=== PATIENT | female | born 1950 | race Caucasian/White ===

== ENCOUNTER 2020-03-05 05:07 | Inpatient (IN) ==
--- NOTE | 2020-02-27 13:17 | PAT Medication Instructions ---
Medication Instructions Date of Service February 27, 2020 Home Medications Lactobacillus acidophilus [Probiotic] 1 cell PO DAILY aspirin 81 mg PO QAM cetirizine [Zyrtec] 10 mg PO DAILY PRN cholecalciferol (vitamin D3) [Vitamin D3] 25 mcg PO QAM cranberry 500 mg PO QAM magnesium oxide 400 mg PO BID vitamin B complex 1 tab PO QAM STOP taking 2 weeks before surgery cranberry 500 mg PO QAM DO NOT take the morning of surgery magnesium oxide 400 mg PO BID vitamin B complex 1 tab PO QAM cetirizine [Zyrtec] 10 mg PO DAILY PRN cholecalciferol (vitamin D3) [Vitamin D3] 25 mcg PO QAM Lactobacillus acidophilus [Probiotic] 1 cell PO DAILY Take morning of surgery With a small sip of water, OTHERWISE NOTHING TO EAT OR DRINK AFTER MIDNIGHT: aspirin 81 mg PO QAM Take evening before surgery magnesium oxide 400 mg PO BID Other Notes If you have any questions please call us at [phone] or [phone] or [phone] or [phone]
--- NOTE | 2020-02-28 13:11 | Anesthesiology Consultation ---
Date of Service February 28, 2020 Assessment & Plan (1) Encounter for pre-operative examination: COVID Status: As of 02/27 PAT assessment, patient denies travel to endemic area, known exposure/sick contacts, symptoms, or testing for coronavirus. Chart Review Chart Review: Acceptable Risk for Surgery and Patient seen in Pre Admission Testing Teaching & Discussion Instructed NPO after midnight before surgery, except medications with 15 cc of water. Medication instructions provided according to the PAT guidelines. History Surgery Operation Date: 03/05/20 10:25 Proposed Procedures p Left Anterior Total Hip Arthroplasty - Oscra Orlando DO Height/Weight Height: 5 ft 6 in Weight: 95.254 kg Allergies Allergy/AdvReac Type Severity Reaction Status Date / Time Penicillins Allergy Unknown UNKNOWN Verified 02/09/20 08:56 REACTION Medications Home Medications Medication Instructions Recorded Confirmed Last Taken Lactobacillus acidophilus 1 cell PO DAILY 02/09/20 02/09/20 Unknown [Probiotic] aspirin 81 mg PO QAM 02/09/20 02/09/20 Unknown cetirizine [Zyrtec] 10 mg PO DAILY PRN 02/09/20 02/09/20 Unknown cholecalciferol (vitamin D3) 25 mcg PO QAM 02/09/20 02/09/20 Unknown [Vitamin D3] cranberry 500 mg PO QAM 02/09/20 02/09/20 Unknown magnesium oxide 400 mg PO BID 02/09/20 02/09/20 Unknown vitamin B complex 1 tab PO QAM 02/09/20 02/09/20 Unknown Past Medical History Medical History (Updated 02/28/20 @ 16:48 by Erick Pineda) Hypoglycemia Pt reports symptomatic hypoglycemia if she does not eat every few hours. Advised if symptoms AM DOS may drink up to 4oz of apple juice. Obesity Osteoarthritis Exercise / Class Metabolic Activity III < 4 Walking/Shop/Light housework Very debilitated by hip pain currently, using wheelchair. But prior to severe hip pain had no SOB or CP with 1 FOS/ambulation. Past Family History Family History Mother Family hx of colon cancer Sister Family hx of colon cancer Past Surgical History Surgical History History of tonsillectomy History of tooth extraction Past Anesthesia History No Hx of Anesthesia Complications and No Family Hx of Anesthesia Complications History of PONV No Hx of PONV and No Hx of Motion Sickness Social History Smoking Status: Never smoker Do You Dip or Chew Tobacco: No Hx Alcohol Use: No Hx Substance Use: No substance use type: does not use Review of Systems Pt denies any recent chest pain, shortness of breath, palpitations, cough, fever or URI. Physical Exam Vital Signs BP: 176/113 (pt reports significant white coat HTN) rpt manual 160/98 P: 89bpm SPO2: 98% RA T: 98.4 F R: 14 Constitutional + obese ENMT Mouth: + chipped teeth (one rear molar) and + small oral opening; no dental restorations and no loose teeth Thyromental Distance: < 3.5 Finger Breadths (3) Mallampati Class: III Neck normal visual inspection; neck extension not limited Respiratory normal respiratory effort Auscultation: lungs clear to auscultation bilaterally Cardiovascular Rate/Rhythm: regular rate and regular rhythm Heart Sounds: no murmur Extremities: no edema Testing Laboratory Results 02/28/20 12:52 02/28/20 12:52 PT 10.9 Seconds (9.0-12.0) 02/28/20 12:52 INR 1.0 (0.9-1.1) 02/28/20 12:52 APTT 31.6 Seconds (21.0-31.0) H 02/28/20 12:52 Hemoglobin A1c 5.7 % (4.5-5.6) H 02/28/20 12:52 Urine Color Yellow 02/28/20 Unknown Urine Appearance Clear (Clear) 02/28/20 Unknown Urine pH 6.5 (4.5-7.5) 02/28/20 Unknown Ur Specific Mchenry 1.012 (1.000-1.030) 02/28/20 Unknown Urine Protein Negative (Negative) 02/28/20 Unknown Urine Glucose (UA) Negative (Negative) 02/28/20 Unknown Urine Ketones Negative (Negative) 02/28/20 Unknown Urine Nitrite Negative (Negative) 02/28/20 Unknown Ur Leukocyte Esterase Negative (Negative) 02/28/20 Unknown Blood Type A Negative 02/28/20 12:52 Antibody Screen NEGATIVE 02/28/20 12:52 Electrocardiogram Date: 02/28/20 Findings: + NSR @ (77bpm) Chest X-Ray Date: 02/28/20 Findings: + NAD
--- NOTE | 2020-02-28 13:37 | XRay Report ---
XR chest Pre-admission PA/Lat CLINICAL HISTORY: PAT preoperative evaluation COMPARISON STUDY: No previous studies for comparison. FINDINGS: The bones soft tissues and hemidiaphragms are normal. The cardiomediastinal silhouette is n ormal. The lungs are clear. The pulmonary vasculature is normal. IMPRESSION: Negative chest. ACT 112: Negative or not required by law. The above report was generated using voice recognition software. It may contain grammatical, syntax or spelling errors. Electronically signed by: Rudi Botello M.D. 02/28/2020 1:36 PM
[2020-02-28 14:09] LABS: Basophils # (auto) 0.01 K/uL (0-0.2); Basophils % (auto) 0.2 %; Eosinophils # (auto) 0.06 K/uL (0-0.5); Eosinophils % (auto) 1.1 %; Estimated Average Glucose 117 mg/dl; Hematocrit (blood only) 45.1 % (37-47); Hemoglobin 14.6 g/dL (12.0-16.0); Hemoglobin A1C 5.7 % (4.5-5.6); Immature Granulocytes # (auto) 0.01 K/uL (0.00-0.02); Immature Granulocytes % (auto) 0.2 %; Lymphocytes # (auto) 1.91 K/uL (1.2-3.4); Lymphocytes % (auto) 33.6 %; Mean Corpuscular Hemoglobin 29.6 pg (25-34); Mean Corpuscular Hgb Conc 32.4 g/dL (32-36); Mean Corpuscular Volume 91.3 fL (80-100); Mean Platelet Volume 9.3 fL (7.4-10.4); Monocytes # (auto) 0.43 K/uL (0.11-0.59); Monocytes % (auto) 7.6 %; Neutrophils # (auto) 3.26 K/uL (1.4-6.5); Neutrophils % (auto) 57.3 %; Platelet Count 267 K/uL (130-400); RDW Standard Deviation 43.6 fL (36.4-46.3); Red Blood Count 4.94 M/uL (4.2-5.4); White Blood Count 5.68 K/uL (4.8-10.8)
[2020-02-28 14:10] LABS: Partial Thromboplastin Ratio 1.1; Partial Thromboplastin Time 31.6 Seconds (21.0-31.0); Prothrombin Time 10.9 Seconds (9.0-12.0)
[2020-02-28 14:18] LABS: Albumin Level 3.9 gm/dl (3.4-5.0); BUN Creatinine Ratio 19.1 (10-20); Calcium 9.3 mg/dl (8.5-10.1); Creatinine Clr Calc Pharmacy 88.2 ml/min; Est GFR (African American) 101.4; Est GFR (Non-African American) 87.5; Potassium 3.8 mmol/L (3.5-5.1)
--- NOTE | 2020-02-28 14:40 | Electrocardiogram Report ---
Test Reason : Blood Pressure : / mmHG Vent. Rate : 077 BPM Atrial Rate : 077 BPM P-R Int : 150 ms QRS Dur : 084 ms QT Int : 372 ms P-R-T Axes : 070 019 061 degrees QTc Int : 420 ms Normal sinus rhythm Normal ECG No previous ECGs available Confirmed by Lawrence Reed ([id number]) on 02/28/2020 2:40:07 PM Referred By: Oscar Orlando Confirmed By:Lawrence Reed
[2020-02-28 14:46] LABS: Appearance Urine Clear (Clear); Bilirubin Urine Negative (Negative); Blood Urine Negative (Negative); Color Urine Yellow; Glucose Urine UA Negative (Negative); Ketones Urine Negative (Negative); Leukocyte Esterase Urine Negative (Negative); Nitrite Urine Negative (Negative); Protein Urine Negative (Negative); Specific Gravity Urine 1.012 (1.000-1.030); Urobilinogen Urine Negative (Negative); pH Urine 6.5 (4.5-7.5)
--- NOTE | 2020-03-04 19:59 | History & Physical Report ---
Date of Service March 05, 2020 Assessment & Plan (1) Degenerative joint disease of left hip: I have indicated the patient for left total hip replacement. The risks, benefits and complications of surgery were explained to the patient which include but not limited to infection, acute blood loss, DVT/PE, injury to nerves, vessels, bone, soft tissue, arthrofibrosis, chronic pain, failure of the prosthesis, hip dislocation, leg length discrepancy, need for additional surgery, cardiac and pulmonary events and . The patient wished to proceed with surgery and informed consent was obtained at this time. We will plan for ASA BID post-operatively for DVT prophylaxis. Upon discharge the patient will be discharged home with home health services. Appropriate clearances by PCP were obtained. History of Present Illness Chief Complaint: Left hip pain/DJD Primary Care Provider: Richa Boyd The patient is a 69 year old female who presents with complaints of severe left hip pain and AVN/DJD. The patient has failed outpatient conservative treatments to this point which included NSAIDS, home exercise, walking program. The patient's pain and limited function have progressed to the point where they severely hinder their activities of daily living and they no longer tolerate exercise programs. They are requesting to proceed with total hip replacement surgery. Allergies Allergy/AdvReac Type Severity Reaction Status Date / Time Penicillins Allergy Unknown UNKNOWN Verified 03/05/20 05:37 REACTION Home Medications Home Medications Medication Instructions Recorded Confirmed Type Lactobacillus acidophilus 1 cell PO DAILY 02/09/20 03/05/20 History [Probiotic] aspirin 81 mg PO QAM 02/09/20 03/05/20 History cetirizine [Zyrtec] 10 mg PO DAILY PRN 02/09/20 03/05/20 History cholecalciferol (vitamin D3) 25 mcg PO QAM 02/09/20 03/05/20 History [Vitamin D3] cranberry 500 mg PO QAM 02/09/20 03/05/20 History magnesium oxide 400 mg PO BID 02/09/20 03/05/20 History vitamin B complex 1 tab PO QAM 02/09/20 03/05/20 History Past Med/Surg History Medical History Hypoglycemia Pt reports symptomatic hypoglycemia if she does not eat every few hours. Advised if symptoms AM DOS may drink up to 4oz of apple juice. Obesity Osteoarthritis Surgical History History of tonsillectomy History of tooth extraction Family History Mother Family hx of colon cancer Sister Family hx of colon cancer Social History Preferred Language: Irish Communication Ability: Effective Railroad Carman Required: No Beliefs That Will Affect Care: None Current Living Situation: Spouse Feels Safe at Home: Yes Safety Concerns: Feels Safe At This Time Smoking Status: Never smoker Do You Dip or Chew Tobacco: No ; Second Hand Exposure: Yes ( A CHILD) ; Tobacco Cessation Education Requested by Patient: No Hx Alcohol Use: No Hx Substance Use: No Review of Systems Review of Systems: All systems reviewed & are unremarkable except as noted in HPI & below Constitutional: as per Subjective / HPI Physical Exam Physical Exam: LLE NVSI +EHL/FHL/TA/GS SILT grossly, +2 DP pulse, compartments soft NT, limited painful ROM of the hip, antalgic gait. Constitutional: WD/WN, vitals as above Eyes: PERRL, conjunctivae normal, anicteric sclerae ENMT: external ear and nose normal, oropharynx normal Neck: trachea midline, no thyromegaly Respiratory: normal respiratory effort, lungs clear to auscultation Cardiovascular: RRR, no murmur, no edema Gastrointestinal (Abdomen): normal bowel sounds, soft, nontender, no hepatosplenomegaly Musculoskeletal: no cyanosis or clubbing, extremities motor strength 5/5 Skin: no rashes, warm and dry Neurologic: patellar DTR's 2+ bilat, sensation intact Psychiatric: A+Ox3, euthymic affect Lymphatic: no cervical or axillary lymphadenopathy Results & Data Results & Data ([facility]) Diagnostic Findings Multiple views of the hip demonstrates severe DJD, AVN involving the femoral head, cortical irregularity with complete loss of the joint space. +osteophytes, +sclerosis, +subchondral cysts.
[2020-03-05] MEDS ORDERED: CLINDAMYCIN 600 MG/54 ML BAG IV SCH (06:00)
[2020-03-05] MEDS ORDERED: TRANEXAMIC ACID 1,000 MG **IV Pre-op IV SCH (06:00)
[2020-03-05] MEDS ORDERED: LR 500ML BOLUS, THEN 15ML/HR IV SCH (06:00)
[2020-03-05] MEDS ORDERED: CeleBREX 200 MG CAP PO SCH (06:00)
[2020-03-05] MEDS ORDERED: FAMOTIDINE 20 MG TAB PO SCH (06:00)
[2020-03-05] MEDS ORDERED: BUPIVACAINE LIPOSOME/PF 266 MG, BUPIVACAINE/EPINEPHRINE 50 ML, SODIUM CHLORIDE 0.9% 30 ... INFIL SCH (06:00)
[2020-03-05] MEDS ORDERED: dexAMETHasone 4 MG TAB PO SCH (06:00)
[2020-03-05] MEDS ORDERED: ROPIVACAINE 0.5% HCL/PF 150 MG, BUPIVACAINE 0.5% MPF 30 ML, EPINEPHrine 30MG/30ML (OR U... INSTIL SCH (06:00)
[2020-03-05] MEDS ORDERED: TRANEXAMIC ACID 1,000 MG **IV Intra-op IV SCH (06:00)
[2020-03-05] MEDS ORDERED: ACETAMINOPHEN 500 MG TAB PO SCH (06:00)
[2020-03-05] MEDS ORDERED: GABAPENTIN 300 MG CAP PO SCH (06:00)
[2020-03-05] MEDS ORDERED: METOCLOPRAMIDE HCL 10 MG TABLET PO SCH (06:00)
[2020-03-05] MEDS ORDERED: BUPIVACAINE 0.5 % 5 MG/1 ML PF 10ML VIAL ONE (06:29)
[2020-03-05] MEDS ORDERED: MIDAZOLAM HCL 1 MG/ML 2ML VIAL ONE (06:41)
[2020-03-05] MEDS ORDERED: fentaNYL citrate 100 MCG/2 ML VIAL ONE (06:41)
[2020-03-05] MEDS ORDERED: BACITRACIN INJ 50,000 UNIT VIAL ONE (06:58)
[2020-03-05] MEDS ORDERED: ORTHO JOINT ANESTHETIC ONE (06:58)
--- NOTE | 2020-03-05 07:03 | History & Physical Bridge Note ---
Date of Service March 05, 2020 History & Physical Bridge Note I have examined the patient, reviewed the History & Physical and in the interval since the performance of the History & Physical I have noted the following changes of clinical significance: no changes noted
[2020-03-05] MEDS ORDERED: PROPOFOL IV EMULSION 10 MG/ML 20 ML VIAL IV ONE (08:05)
[2020-03-05] MEDS ORDERED: ePHEDrine sulfate 50 MG/ML AMP IV PRN (08:16)
[2020-03-05] MEDS ORDERED: ATROPINE SULFATE 0.1 MG/ML 10ML SYR IV PRN (08:16)
[2020-03-05] MEDS ORDERED: ONDANSETRON INJ 2 MG/ML 2 ML VIAL IV PRN ×2 (08:16→10:31)
[2020-03-05] MEDS ORDERED: fentaNYL citrate 100 MCG/2 ML VIAL IV PRN (08:16)
[2020-03-05] MEDS ORDERED: ePHEDrine sulfate 50 MG/ML SYR ONE (08:25)
--- NOTE | 2020-03-05 09:31 | Post Operative Brief Note ---
Immediate Post Op Note v1 Date of Surgery March 05, 2020 Pre & Post Diagnosis Operation Date: 03/05/20 07:15 Pre-Op Diagnosis: Left Hip Osteoarthritis Post-Op Diagnosis: Left Hip Osteoarthritis I identified the patient and participated in the time-out.: Yes Procedure Operation Date: 03/05/20 07:15 Actual Procedures p Left Anterior Total Hip Arthroplasty(Left) - Oscar Orlando DO Surgeon Oscar Orlando DO Curriculum Designer Biju Shrestha Estimated Blood Loss 170 Findings Consistent with Post-Op Diagnosis Fluids 1100 cc LR Specimens femoral head Anesthesia Type Spinal MAC Complications none Disposition Disposition: Recovery Room Overlapping Procedure I was present for: the critical portions of procedure. I was immediately available: during the entire case. Back up surgeon: was not required during procedure.
--- NOTE | 2020-03-05 09:53 | Fluoroscopy Report ---
FL hip LT 1V CLINICAL HISTORY: LEFT ANTERIOR HIP COMPARISON STUDY: None FLUOROSCOPY TIME: 1 minute NUMBER OF FLUOROSCOPIC IMAGES: 2 FINDINGS: Image intensifier support for a left hip total arthroplasty IMPRESSION: Image intensifier support for a total left hip arthroplasty. ACT 112: Negative or not required by law. The above report was generated using voice recognition software. It may contain grammatical, syntax or spelling errors. Electronically signed by: Rudi Botello M.D. 03/05/2020 9:52 AM
--- NOTE | 2020-03-05 09:57 | Operative Report ---
Post Operative Report Pre & Post Diagnosis Operation Date: 03/05/20 07:15 Pre-Op Diagnosis: Left Hip Osteoarthritis Post-Op Diagnosis: Left Hip Osteoarthritis I identified the patient and participated in the time-out.: Yes Procedure Operation Date: 03/05/20 07:15 Actual Procedures p Left Anterior Total Hip Arthroplasty(Left) - Oscar Orlando DO Surgeon Oscar Orlando DO Rivet Machine Operator Biju Shrestha Estimated Blood Loss 170 Findings Consistent with Post-Op Diagnosis Fluids 1100 cc LR Specimens Femoral head Anesthesia Type Spinal MAC Complications none Disposition Disposition: Recovery Room Indications The patient is a 69-year-old female who presents with severe progressive left hip DJD who has failed outpatient conservative treatments. I indicated the patient for a total hip replacement and the risks and benefits were explained in detail which included but not limited to infection, bleeding, blood clot, damage to surrounding bone, nerves, vessels, soft tissue, hip dislocation, failure of the prosthesis, leg length discrepancy, need for additional surgery and . The patient agreed to proceed with replacement of the hip and informed consent was obtained. Appropriate clearances were obtained. Description of Procedure COMPONENTS USED: [employer] hip system: Acetabulum size 52, femur size 7 high offset, femoral head 36+4, liner 5236, acetabular screw 25 mm x 1. DESCRIPTION OF PROCEDURE: Following satisfactory spinal anesthesia, the patient was placed supine on the OR table. The right leg was placed in the well leg morataya and the left leg in the traction device. The left leg was prepared with ChloraPrep and draped sterilely. A surgical timeout was performed, patient identified and site monalisa verified. Appropriate antibiotics were given. A standard anterior approach in the interval between the sartorius and tensor muscles was performed. Dissection was carried down through subcutaneous tissues. Electrocautery was utilized for hemostasis. Circumflex femoral vessels were identified, tied and ligated. The anterior capsular fat pad was removed and the capsulotomy was performed revealing the arthritic femoral neck and head. A femoral neck cut was made with reciprocating saw and the bone fragments removed. The acetabular self-retraining retractor was placed. Acetab ular reaming was completed under fluoroscopic guidance, a 52 shell was impacted into an anatomic position and secured with a dome screw. Local anesthetic was placed and following irrigation, the polyethylene liner was placed. The femur was placed into position of external rotation, extension and adduction. Femoral canal was prepared up to the size high offset. Trial reduction with a +4 neck length head showed good soft tissue tension, leg lengths restored, and good fit and fill of the proximal canal using fluoroscopic landmarks. The hip was dislocated. The trial component was removed. The final implant was placed. The hip was irrigated with sterile saline solution and reduced. A Betadine soak was performed. After 3 minutes, the hip was once more irrigated with copious sterile saline solution with bacitracin. Tram-incisional soft tissue was injected utilizing [place] [employer] which includes a combination of Ropivicaine 0.5% 150mg, Bupivicaine 0.5%/Epinephrine 1:200,000 30ml, Toradol 30mg, Dexamethasone 4mg, Ketamine 10mg, Clonidine 100mcg and NSS 30ml solution. The capsule was then closed with 1-0 Vicryl interrupted figure of eight sutures. The fascia was closed with a running suture of #1 Vicryl, the subcutaneous tissues with 2-0 Vicryl and the skin with surendra. A clean dry dressing was applied which included Patricia incisional VAC. The patient tolerated the procedure well and was transported to PACU in stable condition. Due to the complex nature of the procedure, the entire surgery was performed with the operational assistance of Biju shrestha PA-C. The resident care assistant, under direct supervision, was involved in the actual performance of all aspects of the surgical procedure including patient positioning, hemostasis, tissue retraction, instrument management and wound closure. I attest to the content of the Intraoperative Record and any orders documented therein. Any exceptions are noted below.
--- NOTE | 2020-03-05 10:18 | XRay Report ---
XR hip 1V LT w pelvis CLINICAL HISTORY: IN PACU - A/P PELVIS and LATERAL HIP COMPARISON: None. DISCUSSION: Anatomic alignment posttotal left hip arthroplasty. Could contact between prosthetic and underlying bone. Expected postoperative soft tissue change. IMPRESSION: Anatomic alignment posttotal left hip arthroplasty. ACT 112: Negative or not required by law. The above report was generated using voice recognition software. It may contain grammatical, syntax or spelling errors. Electronically signed by: Rudi Botello M.D. 03/05/2020 10:16 AM
[2020-03-05] MEDS ORDERED: HYDROmorphone INJ 0.5 MG/0.5 ML SYR IV PRN (10:31)
[2020-03-05] MEDS ORDERED: OXYCODONE HCL IR 5 MG TAB (IMMEDIATE RELEASE) PO PRN (10:31)
[2020-03-05] MEDS ORDERED: bisacodyL 10 MG SUPP PR PRN (10:31)
[2020-03-05] MEDS ORDERED: MAGNESIUM HYDROXIDE SUSP 30 ML UDC PO PRN (10:31)
[2020-03-05] MEDS ORDERED: METOCLOPRAMIDE HCL INJ 5 MG/ML 2 ML VIAL IV PRN (10:31)
[2020-03-05] MEDS ORDERED: NALOXONE HCL 0.4 MG/1 ML VIAL/CARP IV PRN (10:31)
[2020-03-05] MEDS: SODIUM CHLORIDE 0.9% 1000ML 1,000 ML IV SCH ×2 (10:51→21:12)
--- NOTE | 2020-03-05 10:56 | Anesthesiology Progress Note ---
Date of Service March 05, 2020 Anesthesia Post Procedure Vital Signs Vital Signs: Temp Pulse Pulse Resp BP Pulse Ox 03/05/20 10:40 36.4 C L 85 18 149/80 H 96 03/05/20 10:25 36.3 C L 79 15 123/75 94 03/05/20 10:15 88 18 135/79 94 03/05/20 10:05 85 16 133/80 100 03/05/20 09:57 36.1 C L 90 22 131/79 98 03/05/20 05:42 36.6 C 100 H 20 198/91 H 99 Pain Intensity Left Hip: Pain Intensity: 8 Transfer of Care Handoff Completed per policy Notes Mental Status: alert / awake / arousable Patient Amnestic to Procedure: Yes Nausea / Vomiting: adequately controlled Pain: adequately controlled Airway Patency, RR, SpO2: stable & adequate BP & HR: stable & adequate Hydration State: stable & adequate Neuraxial Anesthesia: was administered and sensory block is resolving Anesthetic Complications: no major complications apparent and Pt Satisfied with anesthetic care
[2020-03-05] MEDS: ACETAMINOPHEN 500 MG TAB PO SCH ×2 (14:32→20:59)
[2020-03-05] MEDS: CLINDAMYCIN 600 MG in DEXTROSE 5% 50 ML IV SCH (16:04)
--- NOTE | 2020-03-05 16:49 | Orthopedic Progress Note ---
Date of Service March 05, 2020 Assessment & Plan (1) Degenerative joint disease of left hip: s/p left anterior BEAN -clinda x 24 -DVT ppx: SCDs, TEDs, ASA BID -WBAT LLE -PT/OT -PO XR demonstrates well aligned well fixed prothesis without fracture/dislocation -am labs -DC planning Admission and Anticipated Discharge Date Admission Date: March 05, 2020 Subjective Post Operative Progress Note Patient seen sitting up in bed, comfortable, denies complaints, pain well controlled, no acute issues. Review of Systems Review of Systems: All systems reviewed & are unremarkable except as noted in HPI & below Constitutional: as per Subjective / HPI Physical Exam Physical Exam: LLE NVSI +EHL/FHL/TA/GS SILT grossly, +2 DP pulse, compartments soft NT, dressing cdi. Constitutional: WD/WN, vitals as above Results & Data ([facility]) Vital Signs (Past 12 Hours) Vital Signs Temp Pulse Pulse Resp BP Pulse Ox 03/05/20 15:33 36.6 C 97 H 18 143/88 H 94 03/05/20 13:32 36.5 C 104 H 18 139/83 96 03/05/20 12:24 36.4 C L 96 H 18 154/88 H 97 03/05/20 11:25 36.4 C L 89 17 143/84 H 97 03/05/20 10:55 36.4 C L 89 17 159/84 H 97 03/05/20 10:40 36.4 C L 85 18 149/80 H 96 03/05/20 10:25 36.3 C L 79 15 123/75 94 03/05/20 10:15 88 18 135/79 94 03/05/20 10:05 85 16 133/80 100 03/05/20 09:57 36.1 C L 90 22 131/79 98 03/05/20 05:42 36.6 C 100 H 20 198/91 H 99
[2020-03-05] MEDS: DOCUSATE SODIUM 100 MG CAP PO SCH (20:58)
[2020-03-05] MEDS ORDERED: SENNA 8.6 MG TAB PO SCH (21:00)
[2020-03-06] MEDS: CLINDAMYCIN 600 MG in DEXTROSE 5% 50 ML IV SCH (01:30)
[2020-03-06] MEDS: ACETAMINOPHEN 500 MG TAB PO SCH ×2 (06:24→16:07)
[2020-03-06 07:17] LABS: Hematocrit (blood only) 36.4 % (37-47); Hemoglobin 12.7 g/dL (12.0-16.0); Immature Granulocytes # (auto) 0.02 K/uL (0.00-0.02); Immature Granulocytes % (auto) 0.2 %; Lymphocytes # (auto) 1.54 K/uL (1.2-3.4); Lymphocytes % (auto) 12.4 %; Mean Corpuscular Hemoglobin 31.4 pg (25-34); Mean Corpuscular Hgb Conc 34.9 g/dL (32-36); Mean Corpuscular Volume 90.1 fL (80-100); Mean Platelet Volume 9.2 fL (7.4-10.4); Monocytes # (auto) 1.38 K/uL (0.11-0.59); Monocytes % (auto) 11.1 %; Neutrophils # (auto) 9.46 K/uL (1.4-6.5); Neutrophils % (auto) 76.3 %; Platelet Count 249 K/uL (130-400); RDW Coefficient of Variation 13.3 % (11.5-14.5); RDW Standard Deviation 43.8 fL (36.4-46.3); Red Blood Count 4.04 M/uL (4.2-5.4)
[2020-03-06 07:51] LABS: BUN Creatinine Ratio 25.5 (10-20); Calcium 8.8 mg/dl (8.5-10.1); Creatinine Clr Calc Pharmacy 104.6 ml/min; Est GFR (African American) 108.5; Est GFR (Non-African American) 93.7; Potassium 3.9 mmol/L (3.5-5.1)
--- NOTE | 2020-03-06 08:18 | Orthopedic Progress Note ---
Date of Service March 06, 2020 Assessment & Plan (1) Degenerative joint disease of left hip: s/p left anterior BEAN POD#1 -clinda x 24 -DVT ppx: SCDs, TEDs, ASA BID -WBAT LLE -PT/OT -PO XR demonstrates well aligned well fixed prothesis without fracture/dislocation -am labs - hgb 12.7 -DC planning - home with Admission and Anticipated Discharge Date Admission Date: March 05, 2020 Subjective Post Operative Progress Note Patient seen sitting up in bed, comfortable, denies complaints, pain well controlled, no acute issues. Denies F/C/N/V/SOB/CP. Review of Systems Review of Systems: All systems reviewed & are unremarkable except as noted in HPI & below Constitutional: as per Subjective / HPI Physical Exam Physical Exam: LLE NVSI +EHL/FHL/TA/GS SILT grossly, +2 DP pulse, compartments soft NT, dressing cdi. Constitutional: WD/WN, vitals as above Results & Data ([facility]) Vital Signs (Past 12 Hours) Vital Signs Temp Pulse Resp BP BP Pulse Ox 03/06/20 07:52 140/82 03/06/20 07:34 36.4 C L 85 19 193/88 H 99 03/06/20 02:54 36.7 C 76 15 147/88 H 95 03/05/20 23:01 36.8 C 84 16 128/79 95 Laboratory Results 03/06/20 03/06/20 Range/Units 06:53 06:53 WBC 12.40 H (4.8-10.8) K/uL RBC 4.04 L (4.2-5.4) M/uL Hgb 12.7 (12.0-16.0) g/dL Hct 36.4 L (37-47) % MCV 90.1 (80-100) fL MCH 31.4 (25-34) pg MCHC 34.9 (32-36) g/dL RDW Std Deviation 43.8 (36.4-46.3) fL RDW Coeff of Charly 13.3 (11.5-14.5) % Plt Count 249 (130-400) K/uL MPV 9.2 (7.4-10.4) fL Immature Gran % (Auto) 0.2 % Neut % (Auto) 76.3 % Lymph % (Auto) 12.4 % Gem % (Auto) 11.1 % Eos % (Auto) 0.0 % Baso % (Auto) 0.0 % Immature Gran # (Auto) 0.02 (0.00-0.02) K/uL Neut # (Auto) 9.46 H (1.4-6.5) K/uL Lymph # (Auto) 1.54 (1.2-3.4) K/uL Gem # (Auto) 1.38 H (0.11-0.59) K/uL Eos # (Auto) 0.00 (0-0.5) K/uL Baso # (Auto) 0.00 (0-0.2) K/uL Sodium 140 (136-145) mmol/L Potassium 3.9 (3.5-5.1) mmol/L Chloride 111 H (98-107) mmol/L Carbon Dioxide 23 (21-32) mmol/L Anion Gap 6.0 (3-11) BUN 15 (7-18) mg/dl Creatinine 0.60 (0.6-1.2) mg/dl Est Cr Clr Drug Dosing 104.6 ml/min Est GFR ( Amer) 108.5 Est GFR (Non-Af Amer) 93.7 BUN/Creatinine Ratio 25.5 H (10-20) Glucose 107 H (70-99) mg/dl Calcium 8.8 (8.5-10.1) mg/dl
[2020-03-06] MEDS: DOCUSATE SODIUM 100 MG CAP PO SCH (08:33)
[2020-03-06] MEDS ORDERED: ASPIRIN 325 MG ECTAB PO SCH (09:00)
[2020-03-06] MEDS ORDERED: MULTIVITAMIN TAB PO SCH (09:00)
--- NOTE | 2020-03-06 14:59 | Communication Note ---
Date of Service: March 06, 2020 Pt was noted to almost pass out while doing her PT earlier this AM. No sx's since that time. She currently is sitting up in her chair at the bedside. She st ates she has not had those sx's since this AM. She was able to get up with PT after lunch and did well without incident. She is wants to go home. No new changes with her dressing. NV intact. Leg lengths appear equal. VSS,Afeb. Plan for dc this afternoon.
--- NOTE | 2020-03-06 23:10 | Discharge Summary ---
Date of Service March 06, 2020 Admission HPI Per Admitting Provider The patient is a 69 year old female who presents with complaints of severe left hip pain and AVN/DJD. The patient has failed outpatient conservative treatments to this point which included NSAIDS, home exercise, walking program. The patient's pain and limited function have progressed to the point where they severely hinder their activities of daily living and they no longer tolerate exercise programs. They are requesting to proceed with total hip replacement surgery. Principal Diagnosis Left anterior total hip replacement -Left hip DJD/AVN Discharge Exam LLE NVSI +EHL/FHL/TA/GS SILT grossly, +2 DP pulse, compartments soft NT, dressing cdi. Constitutional WD/WN, vitals as above Discharge Data Allergies Allergy/AdvReac Type Severity Reaction Status Date / Time Penicillins Allergy Unknown UNKNOWN Verified 03/05/20 05:37 REACTION Consultations 03/06/20 08:00 Consult Case Management - Discharge Planning Routine Procedures Performed Operation Date: 03/05/20 07:15 Actual Procedures p Left Anterior Total Hip Arthroplasty(Left) - Oscar Orlando DO Ordered Studies 03/05/20 07:15 FL fluoroscopy <1hr Routine FL hip LT 1V Routine Hospital Course (1) Degenerative joint disease of left hip: The patient is a 69 -year-old female who presents with long standing history of severe left hip DJD/AVN and failed outpatient conservative treatments. The patient's symptoms have progressed to the point where it has been difficult to perform even normal activities of daily living. I indicated the patient for a left anterior total hip arthroplasty, the risks, benefits and complications of the procedure include but not limited to infection, bleeding, damage to bone, nerves, vessels, surrounding soft tissue, may develop blood clots, loss of function, leg length discrepancy, dislocation, failure of the components, loosening of the components, the need for additional surgery and . The patient wished to proceed with surgery at this time and informed consent was obtained. Hospital Course: On 03/05/20 the patient was taken to the operating room, adequate anesthesia administered and underwent a left anterior total hip arthroplasty. The patient tolerated the procedure well and was taken to the PACU in stable condition. Post-operatively the patient was started on a DVT ppx medication and given appropriate IV antibiotics. Consults were placed to physical therapy, occupational therapy and case management. On POD#1, the patient did well overnight and their pain was well controlled. Labs were drawn and the Hgb was 12.7. The patient progressed well with PT. Dressings were changed at this time and the incision was clean, dry and intact. The patients hospital stay was relatively uneventful and they were deemed stable by the orthopedic team and consultants to be discharged home with HH on 03/06/20. Discharge Instructions: Upon discharge the patient may weight bear as tolerates through their operative extremity. They were instructed to keep the incision clean and dry at all times. The patient may shower but should not submerge the incision, avoid bathing, pools and hot tubes. The patient was given a script for pain medication and should take as instructed. The patient was given a script for DVT ppx 325mg ASA BID and should take as directed. The patient was instructed to not drive or travel for long distances until cleared to do so. If the patient develops any symptoms of fevers, chills, nausea, vomiting, increased redness, swelling, pain or drainage from the surgical site, they should notify the office and/or proceed to the nearest emergency room. The patient should follow up in 10-14 days after surgery for their routine post-operative follow-up appointment and should call the office to confirm the date and time. s/p left anterior BEAN POD#1 -clinda x 24 -DVT ppx: SCDs, TEDs, ASA BID -WBAT LLE -PT/OT -PO XR demonstrates well aligned well fixed prothesis without fracture/dislocation -am labs - hgb 12.7 -DC planning - home with Total Time Total Time Spent Total Time Spent (In Minutes): 30 Discharge Plan Discharge Items Patient Disposition: Home - Home Health Services Reason For Visit: Left Hip Osteoarthritis Discharge Diagnosis: Left anterior total hip arthroplasty -Left hip DJD/AVN Condition on Discharge: Good Activity: Per Instructions section Lifting: Wait until after follow-up appointment Bathing: Keep incision dry Bathing Comment: No bathing, pools or hot tubs. Sexual Activity: Wait until after follow-up appointment Exercise/Sports: Wait until after follow-up appointment Driving/Machine Use: No driving Weightbearing: Full weightbearing Non-emergency contact: Primary Care Provider and Surgeon Call non-emergency contact if: you have any medication questions, your symptoms worsen, your pain is not controlled, your pain is worsening, your pain is unusual for you, your pain is concerning for you, you have a fever, your temperature is above 101, your wound has increased redness, your wound has increased drainage and your wound pain has increased Follow-up/Referrals: Richa Mitchell M.D. [Primary Care Provider] - Diet: Regular Addtl Attending Provider Instructions: ACTIVITY RECOMMENDATIONS: SELF CARE INSTRUCTIONS AFTER TOTAL HIP REPLACEMENT : Direct Anterior Approach Until the incision and soft tissues around your hip have healed, there is a possibility that the hip prosthesis could dislocate. A. Hip flexion ( Up & Down out of chair or steps ) may be difficult. This is normal. B. Numbness in front of the thigh is also normal for a few weeks. C. Use hand rails when walking on stairs. D. Wear low heeled shoes with non-slip soles. E. Be sure that your floors are free of things that could trip you - throw rugs, electrical cords, small objects. Avoid wet and waxed floors, especially with crutches and canes. F. Try to walk several times a day with rest periods between. G. Continue with all the exercises taught to you in the hospital. Again, make walking a part of your daily routine. SPECIAL CARE INSTRUCTIONS: VERY IMPORTANT TO READ AND REVIEW A. You may still be at risk for phlebitis and blood clots. 1. Wear surgical stockings (VANESSA hose) for 2 weeks after surgery to improve circulation and reduce swelling. 2. Take Aspirin 325mg twice daily for 4 weeks or as directed by your doctor. This is your blood thinner. 3. High risk patients may be prescribed a stronger blood thinner if necessary. 4. If you are on Coumadin normally, your family doctor/mineral ore processing labourer should monitor your blood work. Expect a phone call the day of or the day after bloodwork is drawn to adjust your dosage. B. You must take antibiotics before having dental work, bladder, bowel and other surgery. Your doctor will provide you with a permanent card to carry describing precautions. C. Call [facility] if you have a fever, redness or swelling around the incision, cloudy drainage from incision, or sudden increase in pain in your hip, not relieved by your regular pain medication. D. Please call the office at if you have any concerns or questions about your operation or recovery. * YOU MAY SHOWER, NO TUB BATHS UNTIL CLEARED BY YOUR DOCTOR. - Keep an extra close eye on the top portion of your incision. Be sure to keep clean & dry. * WEAR VANESSA HOSE 20 HOURS PER DAY FOR 2 WEEKS. * YOU MAY PROGRESS FROM A WALKER, TO A CANE, TO INDEPENDENT AT YOUR OWN PACE. * MOST PATIENTS WILL HAVE HOME NURSING FOR THERAPY. IF YOU DECIDE TO DO OUTPATIENT PHYSICAL THERAPY, PLEASE SCHEDULE THIS 3 TIMES PER WEEK. *PREVENA incisional vac is a special dressing covering your incision. This dressing provides a sterile dry environment while you are healing. The dressing is to be left in place for 7 days post-operatively. Your home nurse or surgeon will remove. If you develop any redness or blisters or have any questions notify your surgeon immediately. FOLLOW UP VISIT: If appointment is not already scheduled: Please call [facility] to make a follow-up appointment for 2 weeks after your surgery at . Pending Studies at Discharge: No Stand-Alone Forms: My [facility], Opioid Pain Management, Smoking Cessation Medications and DC Order Prescriptions: New acetaminophen 500 mg Tablet 1,000 mg PO Q8 PRN (Reason: pain) Qty: 90 RF: 0 aspirin 325 mg Tablet,Delayed Release (Dr/Ec) 325 mg PO BID 28 Days Qty: 56 RF: 0 oxycodone 5 mg Tablet 5 mg PO Q6H MDD 4 PRN (Reason: pain) Qty: 30 RF: 0 sennosides [Senokot] 8.6 mg Tablet 17.2 mg PO HS PRN (Reason: constipation) Qty: 28 RF: 0 Continued cetirizine [Zyrtec] 10 mg Tablet 10 mg PO DAILY PRN (Reason: ALLERGY RELIEF) RF: 0 vitamin B complex Tablet 1 tab PO QAM RF: 0 cranberry 500 mg Capsule 500 mg PO QAM RF: 0 cholecalciferol (vitamin D3) [Vitamin D3] 25 mcg (1,000 unit) Tablet 25 mcg PO QAM RF: 0 magnesium oxide 400 mg magnesium Capsule 400 mg PO BID RF: 0 Probiotic 10 billion cell Capsule 1 cell PO DAILY RF: 0 Discontinued aspirin 81 mg Tablet,Delayed Release (Dr/Ec) 81 mg PO QAM RF: 0 Discharge Orders: Discharge Order (Routine); Ordered 03/06/20 Ordered By: Gerson Barahona Admission Data Admit Date/Time: 03/05/20 10:01 Attending Provider: Oscar Orlando Admit Provider: Oscar Orlando Primary Care Provider: Richa Mitchell Other Providers: [facility],Home Health Other Interventions: Discharge Summary Assessment (RN) Last Done: 03/06/20 12:52 DC Date/Time DO NOT enter until pt leaves facility: 03/06/20 16:09
== END 2020-03-06 16:09 | disposition home health service (06) | DRG 470 ==
LOC: ASU 05:07 → 3N 10:01